=== PATIENT | female | born 1965 | race Caucasian/White ===

== ENCOUNTER 2018-05-08 08:55 | Day surgery (SDC) | payer BC ==
[2018-05-08] MEDS ORDERED: MIDAZOLAM 1 MG/ML 2 ML INJ ×2 (11:26)
[2018-05-08] MEDS ORDERED: FENTAnyl 50 MCG/ML VIAL (11:27)
== END 2018-05-08 11:30 | disposition home or self-care (01) ==
LOC: GIL 08:55
DX: Z12.11 Encounter for screening for malignant neoplasm of colon (principal); D12.0 Benign neoplasm of cecum; K64.8 Other hemorrhoids
CPT/HCPCS: 45380; 88305